=== PATIENT | female | born 1995 | race Hispanic/Latino ===

== ENCOUNTER 2021-05-14 20:58 | Emergency (ER) | payer OTHER ==
[~2021-05-14] VITALS: Ht 162.6 cm; Wt 54.4 kg
--- NOTE | 2021-05-16 23:41 | EKG ---
[facility] [address] [facility] [place], [place] [address] Signed Sinus rhythm with short RI Otherwise normal ECG No previous ECGs available Confirmed by LEN SALAZAR MD ([id number] on 05/16/2021 11:41:40 PM Electronically Signed By: LEN SALAZAR MD 05/16/21 [facility] PATIENT NAME: MARVIN OTT Electrocardiogram DATE OF : [birth year] PHYSICIAN: LEN SALAZAR MD REPORT #: [id number] REPORT IS CONFIDENTIAL AND NOT TO BE RELEASED WITHOUT AUTHORIZATION
== END 2021-05-14 22:29 | disposition home or self-care (01) ==
LOC: ED 20:58
DX: R07.89 Other chest pain (principal)
CPT/HCPCS: 71045; 80053; 80500; 83735; 84484; 85025; 93005; 93010; 99285-25